=== PATIENT | male | born 1960 | race Two or more races ===

== ENCOUNTER 2024-03-14 08:58 | Emergency (ER) | payer BC ==
[2024-03-14] MEDS: Azithromycin 250 MG Tab PO ONE (10:33)
== END 2024-03-14 10:36 | disposition home or self-care (01) ==
LOC: MW.ED 08:58
DX: R05.9 Cough, unspecified (principal); Z75.8 Other problems related to medical facilities and other health care
CPT/HCPCS: 71045; 87428; 87651; 99283; A9270